=== PATIENT | female | born 1950 | race Hispanic/Latino ===

== ENCOUNTER → 2020-01-07 | Outpatient (CLI) | payer MEDICARE ==
[~2020-01-07] MED LIST: MECLIZINE HCL25 MG PO; [UNRECOGNIZED DRUG - OTHER]
== END ==
LOC: CARD 09:38
PROVIDERS: ATTEND Family Medicine
DX: H81.4 Vertigo of central origin (principal); I65.21 Occlusion and stenosis of right carotid artery
CPT/HCPCS: 93880